=== PATIENT | male | born 1985 | race Caucasian/White ===

== ENCOUNTER 2020-06-30 14:46 | Observation (INO) | payer OTHER ==
[2020-06-30] MEDS ORDERED: Sodium Chloride 0.9% 1,000 ML IV ONE (14:54)
--- NOTE | 2020-06-30 14:59 | EDM.PDOC ---
ED HPI GENERAL MEDICAL PROBLEM - General Chief Complaint: Drug or Alcohol Abuse Stated Complaint: EMS ARRIVAL Time Seen by Provider: 06/30/20 14:55 Source of Information: Reports: EMS History Limitations: Reports: Altered Mental Status - History of Present Illness INITIAL COMMENTS - FREE TEXT/NARRATIVE: Patient is a 34-year-old male who presents today for altered mental status. Patient was found in a park with his dog and bystanders not sure the patient had a seizure or not. EMS arrived and gave the patient 2 doses of Narcan without any reaction. On the right over patient woke up became Combative he was then given Ativan Narcan and Versed since then patient has been sleeping but occasionally arousable. Patient will open up his eyes and sit up and look around he is moving all extremities. Patient is not responding to any questioning his or report any events. Patient did have 2 small tablets with him a pills in a container and not sure the pills are. No signs of trauma or injury. Treatments PHYSICIAN ADVISOR: Reports: IV/IO, Other (see below) Other Treatments PHYSICIAN ADVISOR: nasal trumpet - Related Data Allergies Allergy/AdvReac Type Severity Reaction Status Date / Time Unable to Assess Allergy Unverified 06/30/20 14:55 Home Meds: Home Meds . [Unable to Verify Home Med List] 06/30/20 [History] ED ROS GENERAL - Review of Systems Review Of Systems: Unable To Obtain Reason Not Obtained: AMS - Physical Exam Exam: See Below Exam Limited By: Altered Mental Status General Appearance: Lethargic Eye Exam: Bilateral Eye: PERRL Respiratory/Chest: No Respiratory Distress, Lungs Clear Cardiovascular: Normal Peripheral Pulses, Regular Rate, Rhythm GI/Abdominal: Normal Bowel Sounds, Soft, Non-Tender Neuro Exam (Abbreviated): Confused Extremities: Normal Inspection, Normal Range of Motion #1 Interpretation EKG Date: 06/30/20 Time: 14:55 Rhythm: NSR Rate (Beats/Min): 98 ST-T: Normal Course - Vital Signs Last Recorded V/S: Last Vital Signs Temp 96.6 F L 06/30/20 14:47 Pulse 93 06/30/20 15:55 Resp 10 L 06/30/20 14:47 BP 114/74 06/30/20 15:55 Pulse Ox 100 06/30/20 15:55 - Orders/Labs/Meds Orders: Active Orders 24 hr Category Date Time Status Patient Status [ADT] Routine ADT 06/30/20 17:22 Ordered CORONAVIRUS COVID-19 AMAYA [MOLEC] Stat Lab 06/30/20 16:42 Received TROPONIN I [CHEM] Stat Lab 06/30/20 17:21 Ordered Labs: Laboratory Tests 06/30/20 06/30/20 06/30/20 Range/Units 14:50 14:50 15:15 WBC 14.72 H (4.0-11.0) K/uL RBC 5.14 (4.50-5.90) M/uL Hgb 15.8 (13.0-17.0) g/dL Hct 45.0 (38.0-50.0) % MCV 87.5 (80.0-98.0) fL MCH 30.7 (27.0-32.0) pg MCHC 35.1 (31.0-37.0) g/dL RDW Std Deviation 40.0 (28.0-62.0) fl RDW Coeff of Pieter 13 (11.0-15.0) % Plt Count 335 (150-400) K/uL MPV 9.70 (7.40-12.00) fL Add Manual Diff YES Neutrophils % (Manual) 49 (48.0-80.0) % Band Neutrophils % 2 % Lymphocytes % (Manual) 42 H (16.0-40.0) % Monocytes % (Manual) 5 (0.0-15.0) % Eosinophils % (Manual) 2 (0.0-7.0) % Nucleated RBC % 0.0 /100WBC Absolute Seg Neuts 7.2 H (1.4-5.7) Band Neutrophils # 0.3 Lymphocytes # (Manual) 6.2 H (0.6-2.4) Monocytes # (Manual) 0.7 (0.0-0.8) Eosinophils # (Manual) 0.3 (0.0-0.7) Nucleated RBCs # 0 K/uL Sodium 135 L (136-148) mmol/L Potassium 3.8 (3.5-5.1) mmol/L Chloride 99 (98-107) mmol/L Carbon Dioxide 16.1 L (21.0-32.0) mmol/L BUN 11 (7.0-18.0) mg/dL Creatinine 1.7 H (0.8-1.3) mg/dL Est Cr Clr Drug Dosing TNP Estimated GFR (MDRD) 45.8 ml/min Glucose 140 H (74-106) mg/dL Calcium 8.3 L (8.5-10.1) mg/dL Phosphorus 5.7 H (2.6-4.7) mg/dL Total Bilirubin 1.1 H (0.2-1.0) mg/dL AST 39 H (15-37) IU/L ALT 84 H (14-63) IU/L Alkaline Phosphatase 96 (46-116) U/L Total Protein 8.5 H (6.4-8.2) g/dL Albumin 4.2 (3.4-5.0) g/dL Globulin 4.3 H (2.6-4.0) g/dL Albumin/Globulin Ratio 1.0 (0.9-1.6) Lipase 142 (73-393) U/L Urine Opiates Screen NEGATIVE (NEGATIVE) Ur Oxycodone Screen NEGATIVE (NEGATIVE) Urine Methadone Screen NEGATIVE (NEGATIVE) Ur Barbiturates Screen NEGATIVE (NEGATIVE) Ur Phencyclidine Scrn NEGATIVE (NEGATIVE) Ur Amphetamine Screen NEGATIVE (NEGATIVE) U Methamphetamines Scrn NEGATIVE (NEGATIVE) U Benzodiazepines Scrn NEGATIVE (NEGATIVE) U Cocaine Metab Screen NEGATIVE (NEGATIVE) U Marijuana (THC) Screen NEGATIVE (NEGATIVE) Ethyl Alcohol < 3.0 mg/dL Meds: Medications Discontinued Medications Generic Name Dose Route Start Last Admin Trade Name Freq PRN Reason Stop Dose Admin Sodium Chloride 1,000 mls @ 999 mls/hr 06/30/20 14:54 06/30/20 15:03 Normal Saline IV 06/30/20 15:54 999 mls/hr .BOLUS ONE Administration Midazolam HCl 2 mg 06/30/20 15:07 06/30/20 15:09 Midazolam 1 Mg/Ml 2 Ml Sdv IVPUSH 06/30/20 15:08 2 mg ONETIME ONE Administration Midazolam HCl 2 mg 06/30/20 15:10 06/30/20 15:11 Midazolam 1 Mg/Ml 2 Ml Sdv IVPUSH 06/30/20 15:11 2 mg ONETIME ONE Administration Midazolam HCl Confirm 06/30/20 15:07 06/30/20 15:11 Midazolam 1 Mg/Ml 2 Ml Sdv Administered 06/30/20 15:08 Not Given Dose 4 mg .ROUTE .STK-MED ONE - Re-Assessments/Exams Free Text/Narrative Re-Assessment/Exam: 06/30/20 17:22 Patient is awake now talking and alert. Patient had a CAT scan that shows a possible intracranial hemorrhage is very small. We spoke to Dr. Stewart at [facility] and he was not impressed and says the CAT scan is normal would not recommend transferring the patient. Due to the CT findings we spoke to the hospitalist and would like to admit the patient here for repeat CAT scan CAT scan is normal in the morning or does not show increase in size patient can be discharged home. Free Text/Narrative Re-Assessment/Exam: 06/30/20 17:23 While we are getting the G[place] patient became agitated and aggressive patient to be given for IV of Versed. Departure - Departure Time of Disposition: 17:23 Disposition: Refer to Observation Condition: Good Clinical Impression: Seizure - Discharge Information Forms: ED Department Discharge Critical Care Note - Critical Care Note Total Time (mins): 45 Comments: Critical Care Procedure Note Authorized and Performed by: Dr. Mace Total critical care time: Approximately Due to a high probability of clinically significant, life threatening deterioration, the patient required my highest level of preparedness to intervene emergently and I personally spent this critical care time directly and personally managing the patient. This critical care time included obtaining a history; examining the patient; pulse oximetry; ordering and review of studies; arranging urgent treatment with development of a management plan; evaluation of patient's response to treatment; frequent reassessment; and, discussions with other providers. This critical care time was performed to assess and manage the high probability of imminent, life-threatening deterioration that could result in multi-organ failure. It was exclusive of separately billable procedures and treating other patients and teaching time. Sepsis Event Note (ED) - Evaluation Sepsis Screening Result: No Definite Risk - Focused Exam Vital Signs: Vital Signs Temp Pulse Resp BP Pulse Ox 06/30/20 15:55 93 114/74 100 06/30/20 15:40 90 142/92 H 100 06/30/20 15:32 96 141/87 H 97 06/30/20 15:17 97 128/81 97 06/30/20 15:11 103 H 123/81 94 L 06/30/20 14:47 96.6 F L 118 H 10 L 145/90 H 94 L 06/30/20 14:46 113 H 145/90 H 90 L - My Orders Last 24 Hours: My Active Orders 06/30/20 16:42 CORONAVIRUS COVID-19 AMAYA [MOLEC] Stat 06/30/20 17:21 TROPONIN I [CHEM] Stat 06/30/20 17:22 Patient Status [ADT] Routine - Assessment/Plan Last 24 Hours: My Active Orders 06/30/20 16:42 CORONAVIRUS COVID-19 AMAYA [MOLEC] Stat 06/30/20 17:21 TROPONIN I [CHEM] Stat 06/30/20 17:22 Patient Status [ADT] Routine Plan: Patient is a 34-year-old male who was found outside by bystanders which could have been a possible seizure. Patient has no signs of trauma on exam. Patient is sleepy but can be arousable wakes up and looks around denies any questions. Will obtain labs U tox CT head and reassess.
[2020-06-30] MEDS ORDERED: Midazolam 1 MG/ML 2 ML SDV IVPUSH ONE ×2 (15:07→15:10)
[2020-06-30] MEDS ORDERED: Midazolam 1 MG/ML 2 ML SDV ONE (15:07)
[2020-06-30 15:23] LABS: BLOOD UREA NITROGEN,BUN 11 mg/dL (7.0-18.0); CARBON DIOXIDE,CO2 16.1 mmol/L (21.0-32.0); CHLORIDE,CL 99 mmol/L (98-107); GLUCOSE RANDOM 140 mg/dL (74-106); LIPASE 142 U/L (73-393); POTASSIUM,K 3.8 mmol/L (3.5-5.1); SODIUM,NA 135 mmol/L (136-148)
--- NOTE | 2020-06-30 16:03 | CT ---
INDICATION: Patient with possible seizure. Acute mental status changes. Nonverbal. TECHNIQUE: CT head without IV contrast. FINDINGS: Vague increased sclerosis involving the clivus and bones of the skullbase. Small focal areas of sclerosis within the clivus and bones of the skullbase. These changes are nonspecific. Very small amount of fluid and mucosal thickening in the left sphenoid sinus. Very subtle small areas of hyperdensity in the right posterior parietal region superiorly on image 28 the axial images and image 82 of the coronal images. I cannot exclude a very tiny amount of acute intracranial hemorrhage in this region. Recommend short-term followup CT to reassess. No other evidence for intracranial hemorrhage, edema, or mass effect. Mild cerebral atrophy. Remainder negative. IMPRESSION: 1. Very small amount of hyperdensity in the superior posterior right parietal lobe along sulci. Findings raise the suspicion of a very small amount of acute intracranial hemorrhage. Consider short-term followup CT to reassess. 2. Mild cerebral atrophy. 3. Increased sclerosis diffusely in the clivus and bones of the skullbase with some patchy areas of nodular sclerosis nonspecific. Please note that all CT scans at this facility use dose modulation, iterative reconstruction, and/or weight-based dosing when appropriate to reduce radiation dose to as low as reasonably achievable. Dictated by Quang Koroma MD @ 06/30/2020 4:02:[address] Quang Koroma @ Jun 30 2020 4:02PM
[2020-06-30] MEDS ORDERED: Albuterol/Ipratropium 3.0-0.5 MG/3 ML Neb Soln NEB PRN (18:15)
[2020-06-30] MEDS ORDERED: Acetaminophen 325 MG Tab PO PRN (18:15)
[2020-06-30] MEDS ORDERED: Ondansetron 4 MG/2 ML SDV IVPUSH PRN (18:15)
[2020-06-30] MEDS ORDERED: LORazepam 2 MG/ML SDV IVPUSH PRN ×2 (18:21→18:22)
--- NOTE | 2020-06-30 18:25 | PCM.HP.2 ---
H&P History of Present Illness - General Date of Service: 07/01/20 Admit Problem/Dx: Admission Diagnosis/Problem Admission Diagnosis/Problem Seizure - History of Present Illness Initial Comments - Free Text/Narative: Patient is a 34-year-old male with past medical history of anxiety, " seizure as a child", hypertension, who was brought to the ER for altered mental status. Per ER report patient was found in the [place] with his dog by the bystanders. There was no witnessed seizure as such, only presumed seizure. Patient received 2 doses of Narcan with no response. Once patient reached to the ER he woke up and became agitated and combative so he received IV Ativan and Versed as well as Narcan. Patient was somnolent after that but occasionally arousable. Patient was able to open his eyes set up and move all his extremities per ER reports. Reportedly there were some unidentified tablets wit h the patient but when I inquired about them patient denied having any pills on him. Patient states that he has a remote history of seizure as a child but is not really sure what caused the seizure. Patient states that he has a significant family history of seizure from his maternal side. Patient has not had any seizures during his adult life. Patient states that he might have been a little dehydrated because he tends to drink more soda than water. The last patient remembers is walking his dog down the hill and next thing he knows is that he is waking up in the ER. Patient denies any fever, chills, nausea, vomiting, chest pain, abdominal pain, diarrhea. Patient states that he is a "deep thinker" and sometimes gets lost in his thoughts and when he comes back to the reality it "shocks him". He has no incidences where he has lost time or has any witnessed seizure. Patient states that he has some chronic changes in his brain from previous CAT scans but cannot tell me exactly what they were. In the ER CT of the head was done which showed hypodensity in the superior posterior right parietal lobe along with sulci, findings raise concern for very small focus of intracranial hemorrhage. Neurosurgery at my not Dr. Stewart was consulted who really was not impressed with the findings and wanted patient to be discharged home. Given patient's CT findings and seizure patient was admitted to the hospital for further management. Patient's girlfriend at bedside who seems pretty upset with the fact that patient lets his dog kiss him and like him all over the face she thinks the dog probably "gave him some kind of infection that is causing this". Upon reviewing his meds patient does take bupropion at home. - Related Data Allergies/Adverse Reactions: Allergies Allergy/AdvReac Type Severity Reaction Status Date / Time No Known Allergies Allergy Verified 06/30/20 21:07 Home Medications: Home Meds Aspirin 81 mg PO BEDTIME 06/30/20 [History] Enalapril Maleate 20 mg PO BID 06/30/20 [History] Escitalopram [Lexapro] 20 mg PO DAILY 06/30/20 [History] Fish Oil/[place]-3 Fatty Acids [Fish Oil 1,000 MG] 2 cap PO BID 06/30/20 [History] Loratadine 10 mg PO DAILY 06/30/20 [History] buPROPion HCL [Bupropion Xl] 150 mg PO DAILY 06/30/20 [History] H&P Review of Systems - Review of Systems: Review Of Systems: See Below General: Denies: Fever, Chills, Malaise, Weakness Pulmonary: Denies: Shortness of Breath Cardiovascular: Denies: Chest Pain, Palpitations Gastrointestinal: Denies: Abdominal Pain, Anorexia Genitourinary: Denies: Dysuria, Frequency, Burning, Pain Musculoskeletal: Denies: Neck Pain, Shoulder Pain, Arm Pain Skin: Denies: Cyanosis, Jaundice, Mottled, Pallor Psychiatric: Denies: Confusion, Depression, Mood Lability Neurological: Denies: Confusion, Dizziness, Headache Hematologic/Lymphatic: Denies: Anemia, Easy Bleeding, Easy Bruising Exam - Exam Exam: See Below - Vital Signs Vital Signs: Last Vital Signs Temp 35.9 C L 06/30/20 14:47 Pulse 78 06/30/20 17:25 Resp 10 L 06/30/20 14:47 BP 143/99 H 06/30/20 17:25 Pulse Ox 100 06/30/20 17:25 Weight: 91.9 kg - Exam General: Alert, Oriented, Cooperative Neck: Supple Lungs: Clear to Auscultation, Normal Respiratory Effort Cardiovascular: Regular Rate, Regular Rhythm GI/Abdominal Exam: Normal Bowel Sounds, Soft, Non-Tender Extremities: Normal Inspection, Normal Range of Motion - Patient Data Lab Results Last 24 hrs: Laboratory Results - last 24 hr 06/30/20 06/30/20 06/30/20 Range/Units 14:50 14:50 14:50 WBC 14.72 H (4.0-11.0) K/uL RBC 5.14 (4.50-5.90) M/uL Hgb 15.8 (13.0-17.0) g/dL Hct 45.0 (38.0-50.0) % MCV 87.5 (80.0-98.0) fL MCH 30.7 (27.0-32.0) pg MCHC 35.1 (31.0-37.0) g/dL RDW Std Deviation 40.0 (28.0-62.0) fl RDW Coeff of Pieter 13 (11.0-15.0) % Plt Count 335 (150-400) K/uL MPV 9.70 (7.40-12.00) fL Add Manual Diff YES Neutrophils % (Manual) 49 (48.0-80.0) % Band Neutrophils % 2 % Lymphocytes % (Manual) 42 H (16.0-40.0) % Monocytes % (Manual) 5 (0.0-15.0) % Eosinophils % (Manual) 2 (0.0-7.0) % Nucleated RBC % 0.0 /100WBC Absolute Seg Neuts 7.2 H (1.4-5.7) Band Neutrophils # 0.3 Lymphocytes # (Manual) 6.2 H (0.6-2.4) Monocytes # (Manual) 0.7 (0.0-0.8) Eosinophils # (Manual) 0.3 (0.0-0.7) Nucleated RBCs # 0 K/uL Sodium 135 L (136-148) mmol/L Potassium 3.8 (3.5-5.1) mmol/L Chloride 99 (98-107) mmol/L Carbon Dioxide 16.1 L (21.0-32.0) mmol/L BUN 11 (7.0-18.0) mg/dL Creatinine 1.7 H (0.8-1.3) mg/dL Est Cr Clr Drug Dosing TNP Estimated GFR (MDRD) 45.8 ml/min Glucose 140 H (74-106) mg/dL Calcium 8.3 L (8.5-10.1) mg/dL Phosphorus 5.7 H (2.6-4.7) mg/dL Total Bilirubin 1.1 H (0.2-1.0) mg/dL AST 39 H (15-37) IU/L ALT 84 H (14-63) IU/L Alkaline Phosphatase 96 (46-116) U/L Troponin I < 0.050 (0.000-0.056) ng/mL Total Protein 8.5 H (6.4-8.2) g/dL Albumin 4.2 (3.4-5.0) g/dL Globulin 4.3 H (2.6-4.0) g/dL Albumin/Globulin Ratio 1.0 (0.9-1.6) Lipase 142 (73-393) U/L Urine Opiates Screen (NEGATIVE) Ur Oxycodone Screen (NEGATIVE) Urine Methadone Screen (NEGATIVE) Ur Barbiturates Screen (NEGATIVE) Ur Phencyclidine Scrn (NEGATIVE) Ur Amphetamine Screen (NEGATIVE) U Methamphetamines Scrn (NEGATIVE) U Benzodiazepines Scrn (NEGATIVE) U Cocaine Metab Screen (NEGATIVE) U Marijuana (THC) Screen (NEGATIVE) Ethyl Alcohol < 3.0 mg/dL SARS-CoV-2 RNA (AMAYA) (NEGATIVE) 06/30/20 06/30/20 Range/Units 15:15 16:42 WBC (4.0-11.0) K/uL RBC (4.50-5.90) M/uL Hgb (13.0-17.0) g/dL Hct (38.0-50.0) % MCV (80.0-98.0) fL MCH (27.0-32.0) pg MCHC (31.0-37.0) g/dL RDW Std Deviation (28.0-62.0) fl RDW Coeff of Pieter (11.0-15.0) % Plt Count (150-400) K/uL MPV (7.40-12.00) fL Add Manual Diff Neutrophils % (Manual) (48.0-80.0) % Band Neutrophils % % Lymphocytes % (Manual) (16.0-40.0) % Monocytes % (Manual) (0.0-15.0) % Eosinophils % (Manual) (0.0-7.0) % Nucleated RBC % /100WBC Absolute Seg Neuts (1.4-5.7) Band Neutrophils # Lymphocytes # (Manual) (0.6-2.4) Monocytes # (Manual) (0.0-0.8) Eosinophils # (Manual) (0.0-0.7) Nucleated RBCs # K/uL Sodium (136-148) mmol/L Potassium (3.5-5.1) mmol/L Chloride (98-107) mmol/L Carbon Dioxide (21.0-32.0) mmol/L BUN (7.0-18.0) mg/dL Creatinine (0.8-1.3) mg/dL Est Cr Clr Drug Dosing Estimated GFR (MDRD) ml/min Glucose (74-106) mg/dL Calcium (8.5-10.1) mg/dL Phosphorus (2.6-4.7) mg/dL Total Bilirubin (0.2-1.0) mg/dL AST (15-37) IU/L ALT (14-63) IU/L Alkaline Phosphatase (46-116) U/L Troponin I (0.000-0.056) ng/mL Total Protein (6.4-8.2) g/dL Albumin (3.4-5.0) g/dL Globulin (2.6-4.0) g/dL Albumin/Globulin Ratio (0.9-1.6) Lipase (73-393) U/L Urine Opiates Screen NEGATIVE (NEGATIVE) Ur Oxycodone Screen NEGATIVE (NEGATIVE) Urine Methadone Screen NEGATIVE (NEGATIVE) Ur Barbiturates Screen NEGATIVE (NEGATIVE) Ur Phencyclidine Scrn NEGATIVE (NEGATIVE) Ur Amphetamine Screen NEGATIVE (NEGATIVE) U Methamphetamines Scrn NEGATIVE (NEGATIVE) U Benzodiazepines Scrn NEGATIVE (NEGATIVE) U Cocaine Metab Screen NEGATIVE (NEGATIVE) U Marijuana (THC) Screen NEGATIVE (NEGATIVE) Ethyl Alcohol mg/dL SARS-CoV-2 RNA (AMAYA) NEGATIVE (NEGATIVE) Result Diagrams: 06/30/20 14:50 06/30/20 14:50 Sepsis Event Note - Evaluation Sepsis Screening Result: No Definite Risk - Focused Exam Vital Signs: Vital Signs Temp Pulse Resp BP Pulse Ox 06/30/20 17:25 78 143/99 H 100 06/30/20 17:11 91 134/84 98 06/30/20 16:55 80 145/92 H 100 06/30/20 16:40 89 121/86 100 06/30/20 16:25 93 131/85 100 06/30/20 16:10 91 117/75 100 06/30/20 15:55 93 114/74 100 06/30/20 15:40 90 142/92 H 100 06/30/20 15:32 96 141/87 H 97 06/30/20 15:17 97 128/81 97 06/30/20 15:11 103 H 123/81 94 L 06/30/20 14:47 35.9 C L 118 H 10 L 145/90 H 94 L 06/30/20 14:46 113 H 145/90 H 90 L Problem List Initiated/Reviewed/Updated: Yes Orders Last 24hrs: Active Orders 24 hr Category Date Time Status Patient Status [ADT] Routine ADT 06/30/20 17:22 Active Ambulate [RC] ASDIRECTED Care 06/30/20 18:15 Ordered Antiembolic Devices [RC] PER UNIT ROUTINE Care 06/30/20 18:16 Ordered Oxygen Therapy [RC] PRN Care 06/30/20 18:15 Ordered Pulse Oximetry [RC] PRN Care 06/30/20 18:16 Ordered RT Aerosol Therapy [RC] ASDIRECTED Care 06/30/20 18:17 Ordered VTE/DVT Education [RC] PER UNIT ROUTINE Care 06/30/20 18:15 Ordered Vital Signs [RC] Q4H Care 06/30/20 18:15 Ordered Regular Diet [DIET] Diet 06/30/20 Dinner Ordered Head w wo Cont [CT] Routine Exams 07/01/20 08:00 Ordered CBC WITH AUTO DIFF [HEME] AM Lab 07/01/20 05:11 Ordered CMP [COMPREHENSIVE METABOLIC PN,CMP] [CHEM] AM Lab 07/01/20 05:11 Ordered MAGNESIUM [CHEM] AM Lab 07/01/20 05:11 Ordered PHOSPHORUS [CHEM] AM Lab 07/01/20 05:11 Ordered UA W/KATE RFLX IF INDICATED [URIN] Routine Lab 06/30/20 18:24 Ordered Acetaminophen [TylenoL] Med 06/30/20 18:15 Ordered 650 mg PO Q4H PRN Albuterol/Ipratropium [DuoNeb 3.0-0.5 MG/3 ML] Med 06/30/20 18:15 Ordered 3 ml NEB Q4HRRT PRN LORazepam [Ativan] Med 06/30/20 18:21 Ordered 2 mg IVPUSH Q2H PRN LORazepam [Ativan] Med 06/30/20 18:22 Ordered See Protocol IVPUSH Q4H PRN Lactated Ringers @ 125 MLS/HR(1000ml) Med 06/30/20 18:15 Ordered Lactated Ringers [Ringers, Lactated] 1,000 ml IV ASDIRECTED Ondansetron [Zofran] Med 06/30/20 18:15 Ordered 4 mg IVPUSH Q4H PRN Sequential Compression Device [OM.PC] Per Unit Routine Oth 06/30/20 18:16 Ordered Resuscitation Status Routine Resus Stat 06/30/20 18:15 Ordered Medication Orders Acetaminophen (Acetaminophen 325 Mg Tab) 650 mg PO Q4H PRN PRN Reason: Pain (Mild 1-3)/fever Albuterol/Ipratropium (Albuterol/Ipratropium 3.0-0.5 Mg/3 Ml Neb Soln) 3 ml NEB Q4HRRT PRN PRN Reason: Shortness Of Breath/wheezing Lactated Ringer's (Ringers, Lactated) 1,000 mls @ 125 mls/hr IV ASDIRECTED FILI Lorazepam (Lorazepam 2 Mg/Ml Sdv) 2 mg IVPUSH Q2H PRN PRN Reason: Seizures Lorazepam (Lorazepam 2 Mg/Ml Sdv) 0 mg IVPUSH Q4H PRN; Protocol PRN Reason: Withdrawal Symptoms Ondansetron HCl (Ondansetron 4 Mg/2 Ml Sdv) 4 mg IVPUSH Q4H PRN PRN Reason: Nausea/Vomiting Assessment/Plan Comment:: 34-year-old male admitted for possible syncope versus seizure and altered mental status Altered mental status has resolved CT scan of the head noted, will get a repeat CT in the morning Continue seizure precautions Patient denies any chronic alcohol usage or abuse IV Ativan 2 mg as needed seizure IV fluids for hydration Resume home meds as appropriate, hold bupropion as it decreases threshold for seizures.
[2020-06-30] MEDS: Lactated Ringers 1,000 ML IV SCH (22:54)
[2020-07-01 06:32] LABS: BLOOD UREA NITROGEN,BUN 8 mg/dL (7.0-18.0); CHLORIDE,CL 104 mmol/L (98-107); GLUCOSE RANDOM 114 mg/dL (74-106); SODIUM,NA 141 mmol/L (136-148)
[2020-07-01] MEDS: Lactated Ringers 1,000 ML IV SCH (07:14)
[2020-07-01] MEDS ORDERED: Fish Oil/Omega-3 Fatty Acids 1 Gm Cap PO SCH (09:00)
[2020-07-01] MEDS ORDERED: Escitalopram 10 MG Tab PO SCH (09:00)
--- NOTE | 2020-07-01 09:09 | CT ---
Indication: Possible intracranial bleed. Technique: Multiaxial CT images of the head were obtained before and after 50 cc Isovue 370 IV contrast. Coronal and sagittal reformats were submitted. Comparison: CT 06/30/2020 Findings: The ventricles, sulci and gyri are of normal size, shape and contour. Midline structures are centrally located. No convincing evidence of intra- or extra-axial fluid collections. The calvarium and skull base are unremarkable, with normal aeration of the visualized petrous temporal bones and paranasal sinuses on both sides. Incidental enhancing developmental venous anomaly in the right superior parietal lobule. 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 Impression: 1. No radiographic evidence of acute intracranial abnormality. 2. Incidental enhancing developmental venous anomaly in the right superior parietal lobule. 3. 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 Please note that all CT scans at this facility use dose modulation, iterative reconstruction, and/or weight-based dosing when appropriate to reduce radiation dose to as low as reasonably achievable. Dictated by Merrill Irizarry MD @ 07/01/2020 9:07:[address] Merrill Irizarry @ Jul 01 2020 9:07AM
[2020-07-01] MEDS ORDERED: Iopamidol 755 MG/ML 500 ML Multipack Bottle IVPUSH STA (09:21)
--- NOTE | 2020-07-01 12:48 | PCM.DCSUM1 ---
Discharge Summary - Hospital Course Brief History: Patient is a 34-year-old male with past medical history of anxiety, " seizure as a child", hypertension, who was brought to the ER for altered mental status. Per ER report patient was found in the [place] with his dog by the bystanders. There was no witnessed seizure as such, only presumed seizure. Patient received 2 doses of Narcan with no response. Once patient reached to the ER he woke up and became agitated and combative so he received IV Ativan and Versed as well as Narcan. Patient was somnolent after that but occasionally arousable. Patient was able to open his eyes set up and move all his extremities per ER reports. Reportedly there were some unidentified tablets with the patient but when I inquired about them patient denied having any pills on him. Patient states that he has a remote history of seizure as a child but is not really sure what caused the seizure. Patient states that he has a significant family history of seizure from his maternal side. Patient has not had any seizures during his adult life. Patient states that he might have been a little dehydrated because he tends to drink more soda than water. The last patient remembers is walking his dog down the hill and next thing he knows is that he is waking up in the ER. Patient denies any fever, chills, nausea, vomiting, chest pain, abdominal pain, diarrhea. Patient states that he is a "deep thinker" and sometimes gets lost in his thoughts and when he comes back to the reality it "shocks him". He has no incidences where he has lost time or has any witnessed seizure. Patient states that he has some chronic changes in his brain from previous CAT scans but cannot tell me exactly what they were. In the ER CT of the head was done which showed hypodensity in the superior posterior right parietal lobe along with sulci, findings raise concern for very small focus of intracranial hemorrhage. Neurosurgery at my not Dr. Stewart was consulted who really was not impressed with the findings and wanted patient to be discharged home. Given patient's CT findings and seizure patient was admitted to the hospital for further management. Patient's girlfriend at bedside who seems pretty upset with the fact that patient lets his dog kiss him and like him all over the face she thinks the dog probably "gave him some kind of infection that is causing this". Upon reviewing his meds patient does take bupropion at home. 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 He had slight confusion and likely postictal phase in the ER but then by the time he arrived to the [facility] unit he was no longer altered. Patient was monitored overnight with no subsequent seizure activity. Initial head CT in the ER possibly detected a small hemorrhage, neurosurgeon Dr. Stewart from [facility] was contacted in the ER he was not impressed with the findings and suggested repeating head CT in the morning. Repeat head CT this morning negative for any hemorrhage continue to show chronic changes that were known to patient. Patient was eager for discharge brain MRI was ordered for upcoming outpatient neurology follow-up for possible seizures. Dr. Valera, neuro radiologist contacted us regarding suspected small right parietal arteriovenous malformation or other high flow vascular malformation noted on brain MRI without contrast. He recommended neuro interventional radiology consult as an outpatient. No parenchymal signal change no acute infarction or acute intracranial hemorrhage. I spoke with Dr. Pinto, neurology who confirmed this would be recommended as an outpatient follow-up she will also follow-up with patient. She is commended starting Keppra 500 mg twice daily as this AV malformation may be a seizure focus. Patient was updated on findings as well as new medication recommended by neurology. He will be given 500 mg p.o. Keppra now and then to start twice daily tonight. He was counseled on no driving for at least 6 months or until cleared by neurology due to seizure activity. Patient verbalized understanding he also was counseled on no scuba diving swimming and no working on ladders or at high heights. Patient is to return to the ER or clinic if concerns should arise. - Patient Instructions Diet: Heart Healthy Diet Activity: No Strenuous Activities (No climbing ladders or working up high.) Driving: Do Not Drive (Until cleared by Neurologist) Showering/Bathing: May Shower Notify Provider of: Fever, Increased Pain, Swelling and Redness, Drainage, Nausea and/or Vomiting Other/Special Instructions: Monitor blood pressure at home. Keep log for PCP. - Discharge Plan *PRESCRIPTION DRUG MONITORING PROGRAM REVIEWED*: Not Applicable *COPY OF PRESCRIPTION DRUG MONITORING REPORT IN PATIENT ALEJANDRO: Not Applicable Prescriptions/Med Rec: levETIRAcetam [Keppra] 500 mg PO BID #60 tablet Home Medications: Home Meds Aspirin 81 mg PO BEDTIME 06/30/20 [History] Enalapril Maleate 20 mg PO BID 06/30/20 [History] Escitalopram [Lexapro] 20 mg PO DAILY 06/30/20 [History] Fish Oil/[place]-3 Fatty Acids [Fish Oil 1,000 MG] 2 cap PO BID 06/30/20 [History] Loratadine 10 mg PO DAILY 06/30/20 [History] levETIRAcetam [Keppra] 500 mg PO BID #60 tablet 07/01/20 [Rx] Oxygen Therapy Mode: Room Air Patient Handouts: Levetiracetam tablets, Seizure, Adult, [id number] Referrals: Carlo Palmer MD [Resident] - 07/05/20 1:00 pm Miryam Pinto MD [Physician] - (Nurse will call you once follow-up appointment is available.) - Discharge Summary/Plan Comment DC Time >30 min.: Yes (Discussing treatment plan with [facility] radiologist as well as Dr. Pinto) - Patient Data Vitals - Most Recent: Last Vital Signs Temp 97.3 F 07/01/20 07:42 Pulse 68 07/01/20 07:42 Resp 16 07/01/20 07:42 BP 116/75 07/01/20 07:42 Pulse Ox 97 07/01/20 07:42 Weight - Most Recent: 94.483 kg I&O - Last 24 hours: Intake & Output 06/30/20 07/01/20 07/01/20 22:59 06:59 14:59 Intake Total 2336 265 Output Total 1400 Balance 936 265 Lab Results - Last 24 hrs: Laboratory Results - last 24 hr 06/30/20 06/30/20 06/30/20 Range/Units 14:50 14:50 14:50 WBC 14.72 H (4.0-11.0) K/uL RBC 5.14 (4.50-5.90) M/uL Hgb 15.8 (13.0-17.0) g/dL Hct 45.0 (38.0-50.0) % MCV 87.5 (80.0-98.0) fL MCH 30.7 (27.0-32.0) pg MCHC 35.1 (31.0-37.0) g/dL RDW Std Deviation 40.0 (28.0-62.0) fl RDW Coeff of Pieter 13 (11.0-15.0) % Plt Count 335 (150-400) K/uL MPV 9.70 (7.40-12.00) fL Neut % (Auto) (48.0-80.0) % Lymph % (Auto) (16.0-40.0) % [place] % (Auto) (0.0-15.0) % Eos % (Auto) (0.0-7.0) % Baso % (Auto) (0.0-1.5) % Neut # (Auto) (1.4-5.7) K/uL Lymph # (Auto) (0.6-2.4) K/uL [place] # (Auto) (0.0-0.8) K/uL Eos # (Auto) (0.0-0.7) K/uL Baso # (Auto) (0.0-0.1) K/uL Add Manual Diff YES Neutrophils % (Manual) 49 (48.0-80.0) % Band Neutrophils % 2 % Lymphocytes % (Manual) 42 H (16.0-40.0) % Monocytes % (Manual) 5 (0.0-15.0) % Eosinophils % (Manual) 2 (0.0-7.0) % Nucleated RBC % 0.0 /100WBC Absolute Seg Neuts 7.2 H (1.4-5.7) Band Neutrophils # 0.3 Lymphocytes # (Manual) 6.2 H (0.6-2.4) Monocytes # (Manual) 0.7 (0.0-0.8) Eosinophils # (Manual) 0.3 (0.0-0.7) Nucleated RBCs # 0 K/uL Sodium 135 L (136-148) mmol/L Potassium 3.8 (3.5-5.1) mmol/L Chloride 99 (98-107) mmol/L Carbon Dioxide 16.1 L (21.0-32.0) mmol/L BUN 11 (7.0-18.0) mg/dL Creatinine 1.7 H (0.8-1.3) mg/dL Est Cr Clr Drug Dosing TNP Estimated GFR (MDRD) 45.8 ml/min Glucose 140 H (74-106) mg/dL Calcium 8.3 L (8.5-10.1) mg/dL Phosphorus 5.7 H (2.6-4.7) mg/dL Magnesium (1.8-2.4) mg/dL Total Bilirubin 1.1 H (0.2-1.0) mg/dL AST 39 H (15-37) IU/L ALT 84 H (14-63) IU/L Alkaline Phosphatase 96 (46-116) U/L Troponin I < 0.050 (0.000-0.056) ng/mL Total Protein 8.5 H (6.4-8.2) g/dL Albumin 4.2 (3.4-5.0) g/dL Globulin 4.3 H (2.6-4.0) g/dL Albumin/Globulin Ratio 1.0 (0.9-1.6) Lipase 142 (73-393) U/L Urine Color Urine Appearance Urine pH (5.0-8.0) Ur Specific [place] (1.001-1.035) Urine Protein (NEGATIVE) mg/dL Urine Glucose (UA) (NEGATIVE) mg/dL Urine Ketones (NEGATIVE) mg/dL Urine Occult Blood (NEGATIVE) Urine Nitrite (NEGATIVE) Urine Bilirubin (NEGATIVE) Urine Urobilinogen (<2.0) EU/dL Ur Leukocyte Esterase (NEGATIVE) U Hyaline Cast (Auto) (0-2/LPF) Urine RBC (0-2/HPF) Urine WBC (0-5/HPF) Ur Epithelial Cells (NONE-FEW) Urine Bacteria (NEGATIVE) Fine Granular Casts (NEGATIVE) Urine Opiates Screen (NEGATIVE) Ur Oxycodone Screen (NEGATIVE) Urine Methadone Screen (NEGATIVE) Ur Barbiturates Screen (NEGATIVE) Ur Phencyclidine Scrn (NEGATIVE) Ur Amphetamine Screen (NEGATIVE) U Methamphetamines Scrn (NEGATIVE) U Benzodiazepines Scrn (NEGATIVE) U Cocaine Metab Screen (NEGATIVE) U Marijuana (THC) Screen (NEGATIVE) Ethyl Alcohol < 3.0 mg/dL SARS-CoV-2 RNA (AMAYA) (NEGATIVE) 06/30/20 06/30/20 06/30/20 Range/Units 15:15 15:15 16:42 WBC (4.0-11.0) K/uL RBC (4.50-5.90) M/uL Hgb (13.0-17.0) g/dL Hct (38.0-50.0) % MCV (80.0-98.0) fL MCH (27.0-32.0) pg MCHC (31.0-37.0) g/dL RDW Std Deviation (28.0-62.0) fl RDW Coeff of Pieter (11.0-15.0) % Plt Count (150-400) K/uL MPV (7.40-12.00) fL Neut % (Auto) (48.0-80.0) % Lymph % (Auto) (16.0-40.0) % [place] % (Auto) (0.0-15.0) % Eos % (Auto) (0.0-7.0) % Baso % (Auto) (0.0-1.5) % Neut # (Auto) (1.4-5.7) K/uL Lymph # (Auto) (0.6-2.4) K/uL [place] # (Auto) (0.0-0.8) K/uL Eos # (Auto) (0.0-0.7) K/uL Baso # (Auto) (0.0-0.1) K/uL Add Manual Diff Neutrophils % (Manual) (48.0-80.0) % Band Neutrophils % % Lymphocytes % (Manual) (16.0-40.0) % Monocytes % (Manual) (0.0-15.0) % Eosinophils % (Manual) (0.0-7.0) % Nucleated RBC % /100WBC Absolute Seg Neuts (1.4-5.7) Band Neutrophils # Lymphocytes # (Manual) (0.6-2.4) Monocytes # (Manual) (0.0-0.8) Eosinophils # (Manual) (0.0-0.7) Nucleated RBCs # K/uL Sodium (136-148) mmol/L Potassium (3.5-5.1) mmol/L Chloride (98-107) mmol/L Carbon Dioxide (21.0-32.0) mmol/L BUN (7.0-18.0) mg/dL Creatinine (0.8-1.3) mg/dL Est Cr Clr Drug Dosing Estimated GFR (MDRD) ml/min Glucose (74-106) mg/dL Calcium (8.5-10.1) mg/dL Phosphorus (2.6-4.7) mg/dL Magnesium (1.8-2.4) mg/dL Total Bilirubin (0.2-1.0) mg/dL AST (15-37) IU/L ALT (14-63) IU/L Alkaline Phosphatase (46-116) U/L Troponin I (0.000-0.056) ng/mL Total Protein (6.4-8.2) g/dL Albumin (3.4-5.0) g/dL Globulin (2.6-4.0) g/dL Albumin/Globulin Ratio (0.9-1.6) Lipase (73-393) U/L Urine Color YELLOW Urine Appearance SLT CLOUDY Urine pH 5.5 (5.0-8.0) Ur Specific [place] >= 1.030 (1.001-1.035) Urine Protein 30 H (NEGATIVE) mg/dL Urine Glucose (UA) NEGATIVE (NEGATIVE) mg/dL Urine Ketones NEGATIVE (NEGATIVE) mg/dL Urine Occult Blood MODERATE H (NEGATIVE) Urine Nitrite NEGATIVE (NEGATIVE) Urine Bilirubin NEGATIVE (NEGATIVE) Urine Urobilinogen 0.2 (<2.0) EU/dL Ur Leukocyte Esterase NEGATIVE (NEGATIVE) U Hyaline Cast (Auto) 0-1 (0-2/LPF) Urine RBC 0-2 (0-2/HPF) Urine WBC 0-2 (0-5/HPF) Ur Epithelial Cells FEW (NONE-FEW) Urine Bacteria FEW (NEGATIVE) Fine Granular Casts 0-1 (NEGATIVE) Urine Opiates Screen NEGATIVE (NEGATIVE) Ur Oxycodone Screen NEGATIVE (NEGATIVE) Urine Methadone Screen NEGATIVE (NEGATIVE) Ur Barbiturates Screen NEGATIVE (NEGATIVE) Ur Phencyclidine Scrn NEGATIVE (NEGATIVE) Ur Amphetamine Screen NEGATIVE (NEGATIVE) U Methamphetamines Scrn NEGATIVE (NEGATIVE) U Benzodiazepines Scrn NEGATIVE (NEGATIVE) U Cocaine Metab Screen NEGATIVE (NEGATIVE) U Marijuana (THC) Screen NEGATIVE (NEGATIVE) Ethyl Alcohol mg/dL SARS-CoV-2 RNA (AMAYA) NEGATIVE (NEGATIVE) 07/01/20 07/01/20 Range/Units 05:30 05:30 WBC 12.29 H (4.0-11.0) K/uL RBC 4.77 (4.50-5.90) M/uL Hgb 14.4 (13.0-17.0) g/dL Hct 41.0 (38.0-50.0) % MCV 86.0 (80.0-98.0) fL MCH 30.2 (27.0-32.0) pg MCHC 35.1 (31.0-37.0) g/dL RDW Std Deviation 39.6 (28.0-62.0) fl RDW Coeff of Pieter 13 (11.0-15.0) % Plt Count 252 (150-400) K/uL MPV 9.80 (7.40-12.00) fL Neut % (Auto) 69.4 (48.0-80.0) % Lymph % (Auto) 22.6 (16.0-40.0) % [place] % (Auto) 6.3 (0.0-15.0) % Eos % (Auto) 1.4 (0.0-7.0) % Baso % (Auto) 0.3 (0.0-1.5) % Neut # (Auto) 8.5 H (1.4-5.7) K/uL Lymph # (Auto) 2.8 H (0.6-2.4) K/uL [place] # (Auto) 0.8 (0.0-0.8) K/uL Eos # (Auto) 0.2 (0.0-0.7) K/uL Baso # (Auto) 0.0 (0.0-0.1) K/uL Add Manual Diff Neutrophils % (Manual) (48.0-80.0) % Band Neutrophils % % Lymphocytes % (Manual) (16.0-40.0) % Monocytes % (Manual) (0.0-15.0) % Eosinophils % (Manual) (0.0-7.0) % Nucleated RBC % 0.0 /100WBC Absolute Seg Neuts (1.4-5.7) Band Neutrophils # Lymphocytes # (Manual) (0.6-2.4) Monocytes # (Manual) (0.0-0.8) Eosinophils # (Manual) (0.0-0.7) Nucleated RBCs # 0 K/uL Sodium 141 (136-148) mmol/L Potassium 4.0 (3.5-5.1) mmol/L Chloride 104 (98-107) mmol/L Carbon Dioxide 29.0 (21.0-32.0) mmol/L BUN 8 (7.0-18.0) mg/dL Creatinine 1.3 (0.8-1.3) mg/dL Est Cr Clr Drug Dosing 73.26 Estimated GFR (MDRD) > 60.0 ml/min Glucose 114 H (74-106) mg/dL Calcium 8.2 L (8.5-10.1) mg/dL Phosphorus 3.6 (2.6-4.7) mg/dL Magnesium 1.8 (1.8-2.4) mg/dL Total Bilirubin 1.7 H (0.2-1.0) mg/dL AST 44 H (15-37) IU/L ALT 73 H (14-63) IU/L Alkaline Phosphatase 80 (46-116) U/L Troponin I (0.000-0.056) ng/mL Total Protein 7.3 (6.4-8.2) g/dL Albumin 3.6 (3.4-5.0) g/dL Globulin 3.7 (2.6-4.0) g/dL Albumin/Globulin Ratio 1.0 (0.9-1.6) Lipase (73-393) U/L Urine Color Urine Appearance Urine pH (5.0-8.0) Ur Specific [place] (1.001-1.035) Urine Protein (NEGATIVE) mg/dL Urine Glucose (UA) (NEGATIVE) mg/dL Urine Ketones (NEGATIVE) mg/dL Urine Occult Blood (NEGATIVE) Urine Nitrite (NEGATIVE) Urine Bilirubin (NEGATIVE) Urine Urobilinogen (<2.0) EU/dL Ur Leukocyte Esterase (NEGATIVE) U Hyaline Cast (Auto) (0-2/LPF) Urine RBC (0-2/HPF) Urine WBC (0-5/HPF) Ur Epithelial Cells (NONE-FEW) Urine Bacteria (NEGATIVE) Fine Granular Casts (NEGATIVE) Urine Opiates Screen (NEGATIVE) Ur Oxycodone Screen (NEGATIVE) Urine Methadone Screen (NEGATIVE) Ur Barbiturates Screen (NEGATIVE) Ur Phencyclidine Scrn (NEGATIVE) Ur Amphetamine Screen (NEGATIVE) U Methamphetamines Scrn (NEGATIVE) U Benzodiazepines Scrn (NEGATIVE) U Cocaine Metab Screen (NEGATIVE) U Marijuana (THC) Screen (NEGATIVE) Ethyl Alcohol mg/dL SARS-CoV-2 RNA (AMAYA) (NEGATIVE) Med Orders - Current: Current Medications Acetaminophen (Acetaminophen 325 Mg Tab) 650 mg PO Q4H PRN PRN Reason: Pain (Mild 1-3)/fever Last Admin: 06/30/20 23:51 Dose: 650 mg Documented by: Albuterol/Ipratropium (Albuterol/Ipratropium 3.0-0.5 Mg/3 Ml Neb Soln) 3 ml NEB Q4HRRT PRN PRN Reason: Shortness Of Breath/wheezing Aspirin (Aspirin 81 Mg Tab.Chew) 81 mg PO BEDTIME [facility] Escitalopram Oxalate (Escitalopram 10 Mg Tab) 20 mg PO DAILY [facility] Last Admin: 07/01/20 08:47 Dose: 20 mg Documented by: Fish Oil (Fish Oil/[place]-3 Fatty Acids 1 Gm Cap) 2 gm PO BID [facility] Last Admin: 07/01/20 08:47 Dose: 2 gm Documented by: Lactated Ringer's (Ringers, Lactated) 1,000 mls @ 125 mls/hr IV ASDIRECTED [facility] Last Admin: 07/01/20 07:14 Dose: 125 mls/hr Documented by: Lorazepam (Lorazepam 2 Mg/Ml Sdv) 2 mg IVPUSH Q2H PRN PRN Reason: Seizures Lorazepam (Lorazepam 2 Mg/Ml Sdv) 0 mg IVPUSH Q4H PRN; Protocol PRN Reason: Withdrawal Symptoms Ondansetron HCl (Ondansetron 4 Mg/2 Ml Sdv) 4 mg IVPUSH Q4H PRN PRN Reason: Nausea/Vomiting Discontinued Medications Enalapril Maleate (Enalapril 10 Mg Tab) 20 mg PO BID [facility] Sodium Chloride (Normal Saline) 1,000 mls @ 999 mls/hr IV .BOLUS ONE Stop: 06/30/20 15:54 Last Admin: 06/30/20 15:03 Dose: 999 mls/hr Documented by: Iopamidol (Iopamidol 755 Mg/Ml 500 Ml Multipack Bottle) 50 ml IVPUSH ONETIME STA Stop: 07/01/20 09:22 Last Admin: 07/01/20 09:21 Dose: 50 ml Documented by: Midazolam HCl (Midazolam 1 Mg/Ml 2 Ml Sdv) 2 mg IVPUSH ONETIME ONE Stop: 06/30/20 15:08 Last Admin: 06/30/20 15:09 Dose: 2 mg Documented by: Midazolam HCl (Midazolam 1 Mg/Ml 2 Ml Sdv) 2 mg IVPUSH ONETIME ONE Stop: 06/30/20 15:11 Last Admin: 06/30/20 15:11 Dose: 2 mg Documented by: Midazolam HCl (Midazolam 1 Mg/Ml 2 Ml Sdv) Confirm Administered Dose 4 mg .ROUTE .STK-MED ONE Stop: 06/30/20 15:08 Last Admin: 06/30/20 15:11 Dose: Not Given Documented by:
--- NOTE | 2020-07-01 13:35 | MR ---
INDICATION: Seizures. TECHNIQUE: Brain MRI without contrast. The following sequences were obtained: Sagittal T1 weighted sequence. DWI and ADC mapping sequences. Axial FLAIR and KATIE T2 weighted sequences. Axial SWI sequence. COMPARISON: Head CT from 07/01/2020. FINDINGS: Within the peripheral right parietal lobe there is an abnormal tangle of flow voids which measures up to 21 millimeters in maximal diameter. No substantial parenchymal signal change. No evidence of acute ischemia. No evidence of acute or chronic intracranial blood products. No mass effect or herniation. No hydrocephalus or extra-axial collections. Pituitary gland hypoplasia. Parasellar structures and optic chiasm are normal. Posterior fossa is normal. All the major intracranial vascular structures demonstrate normal flow-related signal. The orbital contents are normal. Abnormal expansile bone marrow signal changes involving the central skullbase including the clivus and planum sphenoidale. This corresponds to ground-glass changes seen on the CT exam. 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 No obstructive sinus disease. No extracranial soft tissue findings. IMPRESSION: 1. Suspected small right parietal arteriovenous malformation or other high flow vascular malformation. Referral to Neuro- Interventional Radiology recommended for further assessment. No parenchymal signal change. No acute infarction or acute intracranial hemorrhage. 2. Fibrous dysplasia involving the central skullbase. Dictated by Feliberto Valera MD @ 07/01/2020 1:34:[address] Feliberto Valera @ Jul 01 2020 1:34PM
[2020-07-01] MEDS ORDERED: levETIRAcetam 500 MG Tab PO SCH (14:00)
--- NOTE | 2020-07-01 19:17 | US ---
INDICATION: Transaminitis. TECHNIQUE: Ultrasound abdomen limited. Sonographic images of the right upper quadrant were obtained using josue-scale and color Doppler images. COMPARISON: None FINDINGS: Liver: Normal in size. Diffusely echogenic suggesting fatty infiltration. No masses. No intrahepatic biliary dilatation. Gallbladder: Minimal sludge. No stones. Normal wall thickness. No pericholecystic fluid. Common bile duct: 5 mm. Pancreas: Normal. Right kidney: Normal in size. Normal echotexture and cortex. No suspicious masses, stones, or hydronephrosis. Vasculature: Proximal abdominal aorta and IVC are normal. IMPRESSION: There is hepatic steatosis. Otherwise unremarkable right upper quadrant ultrasound. Dictated by Kenneth Gould MD @ 07/01/2020 7:15:[address] Kenneth Gould @ Jul 01 2020 7:15PM
[2020-07-01] MEDS ORDERED: Aspirin 81 MG Tab.Chew PO SCH (21:00)
== END 2020-07-01 14:50 | disposition home or self-care (01) ==
LOC: MW.ED 14:46 → MW.MS 17:22
PROVIDERS: ADMIT Student in an Organized Health Care Education/Training Program; ATTEND Student in an Organized Health Care Education/Training Program
DX: R41.82 Altered mental status, unspecified (principal); I10 Essential (primary) hypertension; Z79.82 Long term (current) use of aspirin; Z79.899 Other long term (current) drug therapy; Z20.828 Contact with and (suspected) exposure to other viral communicable diseases
CPT/HCPCS: 36415; 70450; 70470; 70551; 76705; 80053; 80074; 80305; 80307; 81001; 83690; 83735; 84100; 84484; 85025; 87635; 93005; 96374; 99285; A9270; G0378; J2250; J7030; J7120; Q9967; 99291; U0002

== ENCOUNTER 2023-01-25 04:43 | Observation (INO) | payer MEDICAID ==
[2023-01-25] MEDS ORDERED: Sodium Chloride 0.9% 1,000 ML IV ONE ×2 (04:47→07:35)
[2023-01-25] MEDS ORDERED: Sodium Chloride 0.9% 2.5 ML Syringe FLUSH PRN (04:47)
[2023-01-25] MEDS ORDERED: Metoclopramide 10 MG/2 ML SDV IVPUSH ONE ×2 (04:47→07:36)
[2023-01-25] MEDS ORDERED: Sodium Chloride 0.9% 10 ML Syringe FLUSH PRN (04:47)
[2023-01-25] MEDS ORDERED: diphenhydrAMINE 50 MG/ML SDV IVPUSH ONE ×2 (04:47→07:35)
[2023-01-25] MEDS ORDERED: Pantoprazole 40 MG in Sodium Chloride 0.9% 10 ML IVPUSH ONE (04:49)
[2023-01-25] MEDS ORDERED: Iopamidol 755 MG/ML 500 ML Multipack Bottle IVPUSH ONE (05:02)
[2023-01-25 05:14] LABS: BASOPHILS ABSOLUTE AUTO 0.06 K/uL (0.00-0.20); BASOPHILS PERCENT AUTO 0.7 % (0.0-1.0); EOSINOPHILS ABSOLUTE AUTO 0.25 K/uL (0.00-0.45); EOSINOPHILS PERCENT AUTO 2.7 % (0.0-6.0); HEMATOCRIT 43.5 % (42.0-52.0); HEMOGLOBIN 16.1 g/dL (14.0-18.0); IMMATURE GRAN ABSOLUTE AUTO 0.06 K/uL (0.00-0.05); IMMATURE GRAN PERCENT AUTO 0.7 % (0.0-0.4); LYMPHOCYTES ABSOLUTE AUTO 2.31 K/uL (1.00-4.80); LYMPHOCYTES PERCENT AUTO 25.4 % (24.0-44.0); MEAN CORPUSCULAR HEMOGLOBIN 29.9 pg (28.0-32.0); MEAN CORPUSCULAR VOLUME 80.9 fL (83.0-99.0); MEAN PLATELET VOLUME 9.3 fL (9.4-12.4); MONOCYTES ABSOLUTE AUTO 0.32 K/uL (0.00-0.80); MONOCYTES PERCENT AUTO 3.5 % (0.0-8.0); NEUTROPHILS ABSOLUTE AUTO 6.11 K/uL (1.80-7.70); PLATELET COUNT,PLT 255 K/uL (150-400); RED BLOOD CELL COUNT 5.38 M/uL (4.52-5.90); WHITE BLOOD CELL COUNT,WBC 9.11 K/uL (3.9-11.3)
[2023-01-25 05:42] LABS: A/G RATIO 1.2 (0.9-1.6); ALANINE AMINOTRANSFERASE,ALT 67 IU/L (14-63); ALBUMIN 4.3 g/dL (3.4-5.0); ALKALINE PHOSPHATASE 79 U/L (46-116); ASPARTATE AMNIOTRANSFERASE,AST 34 IU/L (15-37); BILIRUBIN TOTAL 1.9 mg/dL (0.2-1.0); BLOOD UREA NITROGEN,BUN 12 mg/dL (7.0-18.0); CALCIUM 8.7 mg/dL (8.5-10.1); CARBON DIOXIDE,CO2 23.1 mmol/L (21.0-32.0); CHLORIDE,CL 101 mmol/L (98-107); CREATININE 1.4 mg/dL (0.8-1.3); EST CRCL DRUG DOSING (CG) 77.75 mL/min; GLUCOSE RANDOM 170 mg/dL (74-106); MAGNESIUM 1.6 mg/dL (1.8-2.4); POTASSIUM,K 3.5 mmol/L (3.5-5.1); PROTEIN TOTAL,TP 7.9 g/dL (6.4-8.2); SODIUM,NA 136 mmol/L (136-148)
[2023-01-25 05:48] LABS: ESTIMATED GFR 66 mL/min (>60)
[2023-01-25] MEDS ORDERED: Ondansetron 4 MG/2 ML SDV IVPUSH ONE (06:05)
[2023-01-25] MEDS ORDERED: LORazepam 2 MG/ML SDV IVPUSH ONE (07:12)
[2023-01-25] MEDS ORDERED: methylPREDNISolone Sodium Succinate 125 MG/2 ML SDV IVPUSH ONE (07:35)
[2023-01-25] MEDS ORDERED: Meclizine 25 MG Tab PO PRN (12:14)
[2023-01-25] MEDS ORDERED: Acetaminophen 325 MG Tab PO PRN (12:14)
[2023-01-25] MEDS ORDERED: Magnesium Sulfate/Water 2 GM in Premix Bag 1 BAG IV ONE ×2 (12:35→14:30)
[2023-01-25] MEDS: Meclizine 25 MG Tab PO SCH ×2 (13:06→18:21)
[2023-01-25] MEDS: Enoxaparin 40 MG/0.4 ML Syringe SUBCUT SCH (13:06)
[2023-01-25] MEDS ORDERED: Gadobenate Dimeglumine 529 MG/ML 20 ML SDV IVPUSH STA (13:49)
[2023-01-25] MEDS: Ondansetron 4 MG/2 ML SDV IVPUSH PRN ×2 (15:19→20:28)
[2023-01-25] MEDS: LORazepam 0.5 MG Tab PO PRN ×2 (16:11→22:31)
[2023-01-25] MEDS: Enalapril 5 MG Tab PO SCH (21:16)
[2023-01-25] MEDS: Escitalopram 10 MG Tab PO SCH (21:17)
[2023-01-26] MEDS: Meclizine 25 MG Tab PO SCH ×3 (00:31→11:52)
[2023-01-26] MEDS: Ondansetron 4 MG/2 ML SDV IVPUSH PRN ×2 (02:23→09:07)
[2023-01-26 05:38] LABS: BASOPHILS ABSOLUTE AUTO 0.03 K/uL (0.00-0.20); BASOPHILS PERCENT AUTO 0.1 % (0.0-1.0); EOSINOPHILS ABSOLUTE AUTO 0.03 K/uL (0.00-0.45); EOSINOPHILS PERCENT AUTO 0.1 % (0.0-6.0); IMMATURE GRAN ABSOLUTE AUTO 0.11 K/uL (0.00-0.05); IMMATURE GRAN PERCENT AUTO 0.5 % (0.0-0.4); LYMPHOCYTES ABSOLUTE AUTO 2.73 K/uL (1.00-4.80); LYMPHOCYTES PERCENT AUTO 13.3 % (24.0-44.0); MEAN CORPUSCULAR HEMOGLOBIN 30.5 pg (28.0-32.0); MEAN CORPUSCULAR HGB CONC 37.5 g/dL (32.0-36.0); MEAN CORPUSCULAR VOLUME 81.5 fL (83.0-99.0); MEAN PLATELET VOLUME 9.1 fL (9.4-12.4); MONOCYTES ABSOLUTE AUTO 1.28 K/uL (0.00-0.80); MONOCYTES PERCENT AUTO 6.2 % (0.0-8.0); NEUTROPHILS ABSOLUTE AUTO 16.42 K/uL (1.80-7.70); NEUTROPHILS PERCENT AUTO 79.8 % (41.0-71.0); PLATELET COUNT,PLT 286 K/uL (150-400); RED BLOOD CELL COUNT 4.91 M/uL (4.52-5.90)
[2023-01-26 06:05] LABS: A/G RATIO 1.1 (0.9-1.6); ALBUMIN 4.1 g/dL (3.4-5.0); CARBON DIOXIDE,CO2 26.1 mmol/L (21.0-32.0); CREATININE 1.3 mg/dL (0.8-1.3); EST CRCL DRUG DOSING (CG) 83.74 mL/min; MAGNESIUM 2.3 mg/dL (1.8-2.4); POTASSIUM,K 3.6 mmol/L (3.5-5.1); PROTEIN TOTAL,TP 7.7 g/dL (6.4-8.2)
[2023-01-26] MEDS ORDERED: predniSONE 10 MG Tab PO SCH (09:00)
[2023-01-26] MEDS: Escitalopram 10 MG Tab PO SCH (09:00)
[2023-01-26] MEDS ORDERED: atorvaSTATin 20 MG Tab PO SCH (09:00)
[2023-01-26] MEDS ORDERED: Escitalopram 10 MG Tab PO SCH (09:00)
[2023-01-26] MEDS: Enalapril 5 MG Tab PO SCH (09:03)
[2023-01-26] MEDS: Enoxaparin 40 MG/0.4 ML Syringe SUBCUT SCH (11:54)
[2023-01-26] MEDS ORDERED: Scopalamine 1mg/3day Transdermal Patch TRDERM PRN (12:14)
== END 2023-01-26 14:20 | disposition home or self-care (01) ==
LOC: MW.ED 04:43 → MW.MS 10:22
PROVIDERS: ADMIT Internal Medicine; ATTEND Internal Medicine
DX: R11.2 Nausea with vomiting, unspecified (principal); E78.5 Hyperlipidemia, unspecified; H81.20 Vestibular neuronitis, unspecified ear; F41.9 Anxiety disorder, unspecified; F32.A Depression, unspecified; F90.9 Attention-deficit hyperactivity disorder, unspecified type; T75.3XXA Motion sickness, initial encounter; Z87.74 Personal history of (corrected) congenital malformations of heart and circulatory system; Z79.82 Long term (current) use of aspirin; Z79.899 Other long term (current) drug therapy
CPT/HCPCS: 36415; 70450; 70496; 70498; 70553; 80053; 83735; 84484; 85025; 86850; 86900; 86901; 93005; 96361; 96365; 96372; 96375; 96376; 97110; 97161; 97530; 99285; A9270; A9577; C9113; G0378; J1200; J1650; J2405; J2765; J2930; J3475; J3490; J7030; Q9967; 93010; 96374; 99222; 99284